=== PATIENT | female | born 1930 | race Caucasian/White ===

== ENCOUNTER 2016-11-24 08:54 | Observation (INO) | payer MEDICARE ==
[~2016-11-24] VITALS: Ht 154.9 cm; Wt 80.4 kg
[~2016-11-24 08:54] MED LIST: ACTOS DPS15 MG PO; ALDACTONE DPS25 MG PO; ALLOPURINOL300 MG PO; ALPHAGAN-P5 ML OU; ANTI-ITCH28 GM TP; ASPIRIN EC81 MG PO; ATARAX-DPS10 MG PO; BENADRYL-DPS25 MG PO; BUMEX DPS1 MG PO; CLARITIN DPS10 MG PO; COREG DPS12.5 MG PO; COUMADIN2.5 MG PO; FEOSOL-DPS325 MG; GLUCOTROL DPS5 MG PO; GLUTOSE 1537.5 GM PO; IMODIUM DPS2 MG PO; KENALOG LOTION60 M1 TP; LIPITOR DPS10 MG PO; LUBRIDERM180 ML TP; MAALOX DPS30 ML PO; MAG-OX400 MG PO; MILK OF MAGNESI10 ML PO; MYCOSTATIN PWD15 GM TP; NEOSPORIN-DPS15 GM TP; NITROSTAT0.4 MG SL; PAXIL10 MG PO; PHENERGAN6.25 MG/5 PO; PROTONIX40 MG PO; SURFAK DPS240 MG PO; SYNTHROID DP0.125 MG PO; TEARS NATURAL D15 ML OU; THERA1 EACH PO; TYLENOL DPS325 MG PO; WELLBUTRIN75 MG PO; ZAROXOLYN2.5 MG PO; [UNRECOGNIZED DRUG - OTHER] TP
--- NOTE | 2016-11-26 12:40 | ER ---
ADMIT: 11/24/2016 RM/LOC: 520 [facility] MR#: [id number] [address] [address] MARY KAY DE SANT[place] [facility] [address] Emergency Room Report SEX: F AGE: 86 : 1930 DATE: 11/24/2016 ADDENDUM: An 86-year-old, white female, who was at assisted living. She was brought in today because evidently assisted living said that they could not take care of her anymore. She had become more weak and this has been going on progressively to the point where she evidently has an unstable gait as such. We have attempted to get her placed, but the family did have some misgivings as to where she would go. Finally have a possible place, but this will not be able to get her placed until probably tomorrow. At this time, she had also complained of a little bit of right shoulder pain because they were needing to help her up more by her arms. Chest x-ray was done, question of whether she was a little bit more short of breath, but that is negative. She had seen Dr. Call earlier in the week and was supposed to be seen next week as followup after being put on a little bit of Lasix possibly for her chronic swelling and venous stasis in her legs. I refer you to their note on that one. Bottom line was she needs to be admitted observation until we could get her placed because the assisted living area does not have anything more advanced. CONDITION AT DISCHARGE/ADMISSION: Fair. Jimmy Roberts MD/ chelle JOB #: [id number] CC: Trev Abad MD, Attending Physician Trev Abad MD, Family Physician
[2016-11-28] MEDS ORDERED: ASPIRIN EC81 MG PO (11:08)
[2016-11-28] MEDS ORDERED: PEPCID DPS20 MG PO (11:09)
[2016-11-28] MEDS ORDERED: BUMEX DPS1 MG PO (11:09)
[2016-11-28] MEDS ORDERED: SYNTHROID DPS0.15 MG PO (11:09)
[2016-11-28] MEDS ORDERED: FEOSOL-DPS325 MG PO (11:09)
[2016-11-28] MEDS ORDERED: COREG DPS6.25 MG PO (11:09)
[2016-11-28] MEDS ORDERED: PROTONIX40 MG PO (11:09)
[2016-11-28] MEDS ORDERED: ALPHAGAN-P5 ML OU (11:10)
[2016-11-28] MEDS ORDERED: CALAMINE120 ML TP ×2 (11:10→11:16)
[2016-11-28] MEDS ORDERED: TRIMPEX DPS100 MG PO (11:10)
[2016-11-28] MEDS ORDERED: LUBRIDERM180 ML TP ×2 (11:10→11:17)
[2016-11-28] MEDS ORDERED: NORCO 5-325 TA1 EACH PO (11:11)
[2016-11-28] MEDS ORDERED: IMODIUM DPS2 MG PO (11:11)
[2016-11-28] MEDS ORDERED: ATARAX-DPS10 MG PO (11:11)
[2016-11-28] MEDS ORDERED: BENADRYL-DPS25 MG PO (11:11)
[2016-11-28] MEDS ORDERED: MAALOX DPS30 ML PO (11:12)
[2016-11-28] MEDS ORDERED: PHENERGAN6.25 MG/5 PO (11:12)
[2016-11-28] MEDS ORDERED: SURFAK DPS240 MG PO (11:12)
[2016-11-28] MEDS ORDERED: ZOFRAN4 MG PO (11:13)
[2016-11-28] MEDS ORDERED: TYLENOL DPS325 MG PO (11:13)
[2016-11-28] MEDS ORDERED: ZYRTEC10 M3 PO (11:13)
[2016-11-28] MEDS ORDERED: TEARS NATURAL D15 ML OU (11:14)
[2016-11-28] MEDS ORDERED: PROVENTIL2.5 MG/3 M IH (11:14)
[2016-11-28] MEDS ORDERED: BACITRACIN15 G1 TP (11:15)
[2016-11-28] MEDS ORDERED: DULCOLAX-DPS10 MG PR (11:15)
[2016-11-28] MEDS ORDERED: NITROSTAT0.4 MG SL (11:15)
[2016-11-28] MEDS ORDERED: [UNRECOGNIZED DRUG - OTHER] TP (11:16)
[2016-11-28] MEDS ORDERED: KENALOG TP (11:16)
[2016-11-28] MEDS ORDERED: NYSTATIN CREAM15 GM TP (11:17)
[2016-11-28] MEDS ORDERED: ZINC OXIDE28 GM TP (11:18)
--- NOTE | 2016-12-01 07:39 | DS ---
ADMIT: 11/24/2016 RM/LOC: 520 [facility] MR#: [id number] [address] [address] [place] [address] General Discharge Summary SEX: F AGE: 86 : 1930 ADMISSION DATE: 11/24/2016 DISCHARGE DATE: 11/26/2016 ADMITTING DIAGNOSES: 1. Generalized weakness. 2. Failure to thrive. DISMISSAL DIAGNOSES: 1. Chronic congestive heart failure with acute exacerbation. 2. Chronic kidney disease. 3. Diabetes mellitus type 2. 4. Chronic atrial fibrillation. 5. Morbid obesity. 6. Hypertension. 7. Long-term Coumadin therapy. 8. Marked edema. 9. Venous insufficiency. CHIEF COMPLAINT AND HISTORY OF PRESENT ILLNESS: See history and physical for details. 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 She got to the point, where she is not able to ambulate due to the swelling. She had been on diuretics, but these were held due to itching. Itching resolved with the stopping of the diuretics, but she got increased edema. She was started on Bumex 2 days prior to this hospitalization; however, she continued to have marked edema. She is in assisted living facility. They did not feel they could care for her and they brought her to the emergency room. LABORATORY DATA: White count 7.7, hemoglobin 9.9, platelets were 158,000. INR was 3.12 on admission, 2.69 prior to dismissal. UA was unremarkable. Electrolytes; sodium was 132, potassium 3.4, chloride 95, CO2 of 28, BUN 10, creatinine 0.8, glucose 92. IMAGING: X-ray of the right shoulder showed osteoarthritis, but no fractures. Chest x-ray showed cardiomegaly without evidence of congestive heart failure, left-sided pleural effusion had developed. HOSPITAL COURSE: She was admitted, laboratory studies obtained. DNR/DNI was continued. Lovenox was discontinued. Coumadin was held due to INR being elevated. Family and patient requested hospice care. This was instituted, consulted, and [employer] utilized to find group home. She was placed at [facility]. Continue DNR/DNI. She wants to stay on Coumadin due to history of atrial fibrillation. DISCHARGE MEDICATIONS: At time of transfer: 1. Aspirin 81 mg daily. 2. Bumex 2 mg daily. ADMIT: 11/24/2016 RM/LOC: 520 [facility] MR#: [id number] [address] [id number] [place] [address] General Discharge Summary SEX: F AGE: 86 : 1930 3. Coreg 6.25 mg b.i.d. 4. Iron 325 mg b.i.d. 5. Pepcid 20 mg b.i.d. 6. Protonix 40 mg daily. 7. Synthroid 150 mcg daily. 8. Trimpex 100 mg daily. 9. Lubriderm lotion. PRN MEDICATIONS 1. Hydrocodone. 2. Atarax. 3. Benadryl. 4. Maalox. 5. Imodium. 6. Warfarin 2 mg daily. She is to have CBC, BMP, INR in a week and then INR monthly. CBC, CMP q.[address] Looney for her shoulder pain. Taran Call MD/ chelle JOB #: [id number] CC: Taran Call MD, Attending Physician Trev Abad MD, Family Physician
--- NOTE | 2016-12-01 16:45 | HP ---
ADMIT: 11/24/2016 RM/LOC: 520 [facility] MR#: [id number] [address] [address] INDIO DE SANT[place]AG[place] [facility], [place] [address] History and Physical SEX: F AGE: 86 : 1930 DATE OF SERVICE: CHIEF COMPLAINT: Increasing weakness and inability to be cared for at assisted living. 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 She had actually been seen in our office by Dr. Call on 11/22/2016 complaining of lower extremity edema, facial edema and some left arm weakness. She has been taken off her diuretic and metformin as she had severe itching. The itching improved, but she started to retain fluid with swelling in her feet, hands, arms, and face. She denied shortness of breath. She is in [facility], but was not able to get around there well enough, so her family was looking into [facility]-who happened to be full. At that office visit, she had some periorbital edema and some edema of the anterior neck and left arm greater than the right arm, and ankles had 2+ edema. She has a long history for congestive heart failure and fluid retention. She was started on Bumex 2 mg on the 6th and 1 mg daily and the edema does seem to be better. She was to come back in a week for followup. However, the [facility] apparently pushed the issue today as it was not felt to be safe for Indio to be there, so she was brought to the emergency room. The ER staff worked through the afternoon to try to get her placed including at [facility]. Apparently, [facility] could not take her because of a history of depression and they needed to have a psych eval prior to taking her and that could take "3 or 4 days." All other avenues were exhausted, so we needed to admit her for "failure to thrive" and for help with placement. PAST MEDICAL HISTORY: Extensive. She had a compound fracture of her right ankle with ORIF in March 2016-appears to be her last hospitalization. She has known coronary artery disease with previous 4-vessel bypass in 2002. She has ischemic cardiomyopathy and cardiac pacemaker/defibrillator. She has had a long-term history of iron deficiency anemia, she has chronic atrial fibrillation, chronic kidney disease, chronic systolic congestive heart failure, type 2 diabetes (well controlled), chronic edema, history of gout, systemic hypertension, hypomagnesemia, varicose veins of the lower extremity(ablations done in June 2011) and she had a history of an ulcer on her right lateral ankle in July 2016 that cleared-this followed her ankle fracture. PAST SURGICAL HISTORY: She has also had a previous appendectomy and cholecystectomy. MEDICATIONS: Her current medications from our office list include: 1. Acetaminophen 325 mg two q.4 hours p.r.n. 2. Alphagan 0.1 drop OU b.i.d. 3. Aspirin 81 mg daily. 4. Coreg 6.25 mg daily. 5. Coumadin 3 mg Tuesday, Tuesday, Tuesday, , and Tuesday. 6. Iron 325 mg b.i.d. ADMIT: 11/24/2016 RM/LOC: 520 [facility] MR#: [id number] [address] [address] [place] [address] History and Physical SEX: F AGE: 86 : 1930 7. Hydroxyzine 10 mg b.i.d. 8. Levothyroxine 50 mcg daily. 9. Loperamide 2 mg two caps every loose stool. 10.Metolazone 2.5 mg daily (discontinued at last office visit.). 11.Milk of mag. 12.Mylanta. 13.Nature's Tears. 14.Nitrostat p.r.n. 15.Omeprazole 40 mg daily. 16.Promethazine p.r.n. 17.Surfak 240 mg daily. 18.Synthroid 125 mcg. 19.Trimethoprim 100 mg daily. 20.Zyrtec 100 mg daily. ALLERGIES: REPORTED TO IODINE, SULFA ANTIBIOTICS, CODEINE (NAUSEA) AND LASIX. SOCIAL HISTORY: Reveals that she drinks 2-3 cups of decaf coffee per day. She is a former smoker, but quit years ago. Her family is very attentive to her. FAMILY HISTORY: Otherwise not important at this point. PHYSICAL EXAMINATION: GENERAL: She is alert, lying on her right side, complaining of right shoulder pain ("they kind of pulled my shoulder around the last few days"-x-ray in the ER was negative). VITAL SIGNS: Her blood pressures in the 120-130 systolic range, pulse of about 70 and paced. She is afebrile, O2 saturation in the low 90s. HEENT: Looks essentially negative. NECK: Reasonably supple. LUNGS: Actually clear. CARDIAC: Shows a regular rhythm now, no apparent murmur. ABDOMEN: Soft without mass or tenderness. LOWER EXTREMITIES: Show trace of edema. She has tenderness to palpation over the right proximal humerus. NEUROLOGIC: Otherwise normal with inability to test. IMPRESSION: 1. Increasing weakness with "failure to thrive." Unable to be cared for at assisted living. 2. Chronic congestive heart failure. 3. Chronic kidney disease. 4. Type 2 diabetes-well controlled. 5. Chronic atrial fibrillation. 6. Status post cardiac defibrillator/pacemaker placement. 7. Chronic edema. 8. History of gout. 9. Systemic hypertension. 10.Long-term use of Coumadin. ADMIT: 11/24/2016 RM/LOC: 520 [facility] MR#: [id number] [address] [address] INDIO DE [place], [place] [address] History and Physical SEX: F AGE: 86 : 1930 11.History of varicose vein issues of the lower extremities. 12.Status post multiple operations as outlined above. PLAN: She has been admitted. We will seek physical therapy, occupational therapy, and speech therapy eval for her. We will seek a psych eval. We will have social services counselor continue to work with her. Note that on 11/22/[address] Call in our office, her serum iron was 45 ug/dL (normal 37-170). Reticulocyte count was 2.59 with a RPI of 0.88, her hemoglobin was 9.5, hematocrit 30.4. Urinalysis showed 2+ leukocyte esterase with 78 WBCs per high-power field, but numerous epithelial cells, so culture was not done. Her white count was 6500. Her indices were normal. Her sodium was 130 mL/L, glucose 152 mg/dL, calcium 7.8 mg/dL. Albumin 2.3 g/dL, alkaline phosphatase 250 U/L (normal less than 116) and her CMP was otherwise normal. TSH was elevated at 9.774 IU/L with a T4 of 1.23 ng/dL (normal 0.76- 1.46) and her hemoglobin A1c was 5.8%. Trev Abad MD/ chelle JOB #: [id number] CC: Trev Abad, Attending Physician Trev Abad, Family Physician
== END 2016-11-26 16:33 | disposition short-term general hospital (02) ==
LOC: ER 08:54 → 6PED 15:00 → 5MS 15:00
PROVIDERS: ADMIT Family Medicine
DX: R53.1 Weakness (principal); R62.7 Adult failure to thrive; E11.22 Type 2 diabetes mellitus with diabetic chronic kidney disease; I13.0 Hypertensive heart and chronic kidney disease with heart failure and stage 1 through stage 4 chronic kidney disease, or unspecified chronic kidney disease; I50.9 Heart failure, unspecified; N18.9 Chronic kidney disease, unspecified; I48.2 Chronic atrial fibrillation; Z95.0 Presence of cardiac pacemaker; Z79.899 Other long term (current) drug therapy; Z88.8 Allergy status to other drugs, medicaments and biological substances; Z88.6 Allergy status to analgesic agent; Z79.01 Long term (current) use of anticoagulants; Z79.82 Long term (current) use of aspirin